=== PATIENT | male | born 1975 | race Caucasian/White ===

== ENCOUNTER 2016-11-16 16:57 | Emergency (ER) | payer MEDICAID ==
[2016-11-16 20:32] VITALS: BP 127/73
== END 2016-11-16 20:32 | disposition home or self-care (01) ==
LOC: ED 16:57
DX: J45.901 Unspecified asthma with (acute) exacerbation (principal)
CPT/HCPCS: J7512; J7613; J7644

== ENCOUNTER 2017-01-24 06:38 | Inpatient (IN) | payer SELFPAY ==
[2017-01-24] VITALS (9 sets, daily range): BP systolic 131–202; BP diastolic 68–134
[~2017-01-24] VITALS: Ht 157.5 cm; Wt 75.8 kg
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
--- NOTE | 2017-01-24 06:45 | NUR ---
PT OBTAINED ROSC AT 0645, PER DR MCMAHON TO BEGIN AMIDORONE DRIP, PHARMACY NOTIFIED.
--- NOTE | 2017-01-24 07:09 | NUR ---
SPOKE WITH RAMONA, NOTIFIED HER THAT SPOUSE IS IN THE ED AND ASKED IF SHE COULD COME DOWN [place]. PROVIDED HER WITH ADDRESS.
[2017-01-24 07:27] LABS: UA SPECIFIC GRAVITY 1.025 (1.005-1.035); microscopic required? YES; urine erythrocyte 2+ (NEGATIVE)
[2017-01-24 07:28] LABS: BASOPHIL % 0.3 % (0-2); PLATELET COUNT 137 x10^3mcL (130-400); RED CELL DISTRIBUTION WIDTH 13.9 % (11.5-14.5)
[2017-01-24 07:35] LABS: CALCIUM 7.6 mg/dL (8.5-10.1); CARBON DIOXIDE 17.2 mmol/L (21-32); CHLORIDE SERUM 102 mmol/L (98-107); CREATININE SERUM 1.7 mg/dL (0.7-1.3); GFR1 48 mL/min; GLUCOSE SERUM 431 mg/dL (74-106); POTASSIUM SERUM 4.2 mmol/L (3.5-5.1); SODIUM SERUM 131 mmol/L (136-145)
[2017-01-24 07:35] LABS: AMPHETAMINE QUAL UR NONE DETECTED (NEG <=1000)
[2017-01-24 07:46] LABS: ALKALINE PHOSPHATASE 123 U/L (46-116); ALT/SGPT 165 U/L (16-63); AMYLASE 79 U/L (25-115); AST/SGOT 280 U/L (15-37); BILIRUBIN TOTAL 0.16 mg/dL (0.20-1.00); CHOLESTEROL 151 mg/dL (<200); HDL CHOLESTEROL 43 mg/dL (40-60); LIPASE 271 IU/L (73-393)
[2017-01-24 07:50] LABS: ALBUMIN 2.6 g/dL (3.4-5.0); T4(THYROXINE) 4.2 ug/dL (4.7-13.3); TOTAL PROTEIN, SERUM 5.4 g/dL (6.4-8.2)
--- NOTE | 2017-01-24 07:54 | NUR ---
0710 PT NOTED WITH SINUS IGNACIO WITH HR IN 30S. CPR WAS STARTED AND DR MCMAHON CALLED TO ROOM. PT OBTAINED ROSC AT 0715 S/P 1 ADDITIONAL ROUND OF EPI AND 1 SODIUM BICARB.
--- NOTE | 2017-01-24 08:15 | NUR ---
RECTAL TUBE PLACED BY HERMINIO JAFFE. PT WAS HAVING MULTIPLE EPISODES OF WATERY DIARRHEA.
--- NOTE | 2017-01-24 08:38 | NUR ---
PT TAKEN TO CT VIA [facility] AT THIS TIME. RT HERMINIO ANDRADE, MYSELF, AND CT STAFF ACCOMPANIED.
--- NOTE | 2017-01-24 08:51 | NUR ---
RETURNED FROM CT WITHOUT INCIDENCE. PT RECONNECTED TO FULL CARDIAC MONITORS. WILL CONTINUE WITH PLAN OF CARE.
--- NOTE | 2017-01-24 09:08 | NUR ---
DR MCMAHON NOTIFIED OF PT BP, DR GAVE NO FURTHER ORDERS AT THIS TIME.
--- NOTE | 2017-01-24 09:12 | NUR ---
RT AT BEDSIDE, REDUCED FIO2 TO 40%.
[2017-01-24] MEDS ORDERED: ALBUTEROL1.25 MG/3 PO (09:31)
--- NOTE | 2017-01-24 10:55 | NUR ---
DR MCMAHON MADE AWARE OF PT INCREASED MOVEMENT. PT ATTEMPTING TO REACH FOR ETT. SOFT RESTRAINTS AND 2 MG IVP ATIVAN ORDERED PER DR MCMAHON.
--- NOTE | 2017-01-24 11:22 | NUR ---
XRAY AT BEDSIDE FOR NG TUBE CONFIRMATION.
[2017-01-24 11:27] LABS: T3 TOTAL 1.31 ng/mL
--- NOTE | 2017-01-24 11:29 | NUR ---
PER DULCE VÁSQUEZ TO TRANSFER TO ICU.
[2017-01-24 11:30] LABS: FREE T4 0.7 ng/dL (0.76-1.46); FREE THYROXINE INDEX 1.7 ug/dL (1.4-4.5); T4(THYROXINE) 4.7 ug/dL (4.7-13.3)
--- NOTE | 2017-01-24 11:45 | NUR ---
LIOR DURHAM FROM ED CALLED FOR REPORT AT THIS TIME. UPDATES PROVIDED, ALL QUESTIONS ANSWERED ALL CONCERNS ADDRESSED. PATIENT TO BE TRANSFERED TO ICU SHORTLY.
--- NOTE | 2017-01-24 12:15 | NUR ---
PATIENT ARRIVED ON UNIT AT THIS TIME ACCOMPANIED BY HERMINIO HENRY AND EMT FROM ER. PATIENT IS ORALLY INTUBATED ON PRESSURE CONTROL WITH 7.5 ETT THAT IS 22 LL. LUNG SOUNDS ARE CLEAR BILATERALLY, CHEST RISES SYMMETRICALLY. PATIENT IS AGONAL BREATHING. GCS 3 OBTAINED. PUPILS ARE 2 MM AND FIXED BILATERALLY. PATIENT EXHIBITS NO RESPONSE TO PAINFUL, OR VERBAL STIMULI AFTER MULTIPLE ATTEMPTS. PERIPHERAL PULSES ARE MODERATE TO BUE AND WEAK TO BLE. CAP REFILL IS <3 SECONSD TO BUE AND >3 SECONDS TO BLE. PATIENT HAS IO TO RIGHT LEG, 18 G IV TO RIGHT AND LEFT AC. AMIODARONE INFUSING AT 1 MG/MIN AT THIS TIME. BOWEL SOUNDS ARE HYPOACTIVE IN ALL 4 QUADRANTS WITH FLEXI-SEAL IN PLACE THAT IS DRAINING ORANGE WATERY STOOL TO GRAVITY. MARTINEZ IN PLACE DRAINING YELLOW URINE TO GRAVITY. NO SCROTAL EDEMA OR PENILE DISCHARGE SEEN. WILL CONTINUE TO MONITOR PATIENT.
--- NOTE | 2017-01-24 12:20 | NUR ---
DR. OLIVAS BEDSIDE FOR ASSESSMENT. [id number] TO BE DISCUSSED WITH FAMILY BUT FAMILY IS WAITING FOR THE TO ARRIVE.
--- NOTE | 2017-01-24 12:25 | NUR ---
RT [facility] FOR BREATHING TREATMENT.
--- NOTE | 2017-01-24 12:44 | NUR ---
PT NOTE 1205 RECEIVED ORDER FOR PT EVAL, Pt WAS TRANSFERRED TO ICU FROM ER; PER RN, Pt WAS JUST INTUBATED TODAY; DEFER PT FOR NOW DUE TO INTUBATION. PVE(1)
--- NOTE | 2017-01-24 12:50 | NUR ---
ULTRASOUND BEDSIDE FOR US CAROTID.
--- NOTE | 2017-01-24 13:05 | NUR ---
AMIODARONE CHANGED TO 0.5 MG/MIN AT THIS TIME DUE TO 6N HOURS PASSED. WILL CONTINUE TO MONITOR.
--- NOTE | 2017-01-24 13:55 | NUR ---
DR OLIVAS, DR VICTORIA, DR STANFORD (FOR TRANSLATION) AND MYSELF IN QUIET ROOM. DR OLIVAS SPOKE WITH FAMILY REGARDING PATIENT'S POOR PROGNOSIS. ALL QUESTIONS AND CONCERNS ADDRESSED. PATIENT'S FAMILY WOULD LIKE WITH CONTINUE TO POC WITH PATIENT CONTINUING FULL CODE STATUS.
--- NOTE | 2017-01-24 14:00 | NUR ---
INSPIRATORY PRESSURE ON VENTILATOR SETTINGS INCREASED TO [address] VICTORIA VERBAL ORDER.
--- NOTE | 2017-01-24 16:54 | NUR ---
PATIENT EXTUBATED AT THIS TIME.
--- NOTE | 2017-01-24 16:55 | NUR ---
MORPHINE INTITIATED AT THIS TIME AT 5 MG/HR. ATIVAN CONTINUE AT 2 MG/HR.
--- NOTE | 2017-01-24 17:00 | NUR ---
ATIVAN INCREASED TO 4 MG/HR AT THIS TIME DUE TO PATIENT SHAKING CONSTANTLY.
--- NOTE | 2017-01-24 17:05 | NUR ---
MORPHINE INCREASED TO 7 MG/HR AT THIS TIME. DUE TO HR 117 AND PATIENT GROANING.
--- NOTE | 2017-01-24 17:15 | NUR ---
MORPHINE INCREASED TO 9 MG/HR DUE TO HR 115.
--- NOTE | 2017-01-24 17:25 | NUR ---
MORPHINE INCREASED TO 11 MG/HR DUE TO HR 118.
--- NOTE | 2017-01-24 17:35 | NUR ---
MORPHINE INCREASED TO 13 MG/HR. DUE TO HR 114 AND RR 24.
--- NOTE | 2017-01-24 17:45 | NUR ---
MORPHINE INCREASED TO 15 MG/HR DUE TO HR >100 AND RR >20
--- NOTE | 2017-01-24 17:55 | NUR ---
MORPHINE INCREASED TO 17 MG/HR DUE TO PATIENT MOANING.
--- NOTE | 2017-01-24 18:05 | NUR ---
MORPHINE INCREASED TO 19 MG/HR AT THIS TIME HR >100
--- NOTE | 2017-01-24 18:07 | NUR ---
ATIVAN INCREASED TO 6 MG/HR DUE TO PATIENT BEING INCREASINGLY RESTLESS.
--- NOTE | 2017-01-24 18:42 | NUR ---
PATIENT WITH AGONAL BREATHING AND HR 107. INCREASED MORPHINE BY 2 MG HOUR AND ATIVAN UP BY 2 MG HOUR. WILL CONTINUE TO MONITOR.
--- NOTE | 2017-01-24 19:10 | NUR ---
RECEIVED REPORT FROM DIANE DURHAM, UPDATES PROVIDED, WILL ASSUME TOTAL CARE.
--- NOTE | 2017-01-24 19:15 | NUR ---
RECEIVED PATIENT RESTING IN WITH NO S/S OF DISTRESS. PT ON MORPHINE DRIP @23 MG/HR AND ATIVAN 8 MG/HR. RIGHT AC AND LEFT AC, CDI, PATENT, NO S/S OF REDNESS OR INFILTRATION. TRACHEA IS MIDLINE. NO SCLERAL EDEMA NOTED. NO DRAINGE FROM EENT. LUNG SOUNDS CLEAR TO BUL, DIMINISHED TO BLL. CHEST RISE SYMMETRICAL. S1, S2 AUSCULTATED. CHEST WALL STABLE. NO S/S OF CHEST PAIN. PERIPHERAL PULSES ARE MODERATE TO BUE AND WEAK TO BLE. CAP REFILL <3 SEC. NO EDEMA NOTED. SKIN IS DRY, WTT, AND INTACT. PATIENT HAS GENERALIZED WEAKNESS, PASSIVE ROM NOTED TO ALL EXTREMITIES. PATIENT ABD IS SOFT, ROUND, AND NONTENDER TO PALPATION. NORMOACTIVE BOWEL SOUNDS X 4Q. FLEXI-SEAL IN PLACE DRAINING TO GRAVITY. PATIENT HAS MARTINEZ CATHETER IN PLACE THAT IS DRAINING YELLOW URINE TO GRAVITY. NO SCROTAL EDEMA OR PENILE DISCHARGE NOTED. BED IN LOWEST POSITION. SIDE RAILS UP X 2, HOB ELEVATED 30 DEGREES, CALL LIGHT WITHIN REACH.
--- NOTE | 2017-01-24 19:30 | NUR ---
FAMILY AT BEDSIDE
--- NOTE | 2017-01-24 20:40 | NUR ---
HR 110S, MORPHINE TITRATED TO 25 MG/HR. WILL CONTINUE TO MONITOR.
--- NOTE | 2017-01-24 23:45 | NUR ---
FAMILY AT BEDSIDE
--- NOTE | 2017-01-24 23:45 | NUR ---
TEMP 104.[address], BLANKETS REMOVED, ICE PACKS APPLIED, WILL CONTINUE TO MONITOR.
--- NOTE | 2017-01-25 01:30 | NUR ---
DR DAVIS AT BEDSIDE FOR ASSESSMENT, UPDATES PROVIDED, ALL QUESTIONS AND CONCERNS ANSWERED. DOCTOR SPOKE TO PATIENT'S SISTER AT BEDSIDE REGARDING PATIENT'S STATUS. WILL CONTINUE TO MONITOR.
--- NOTE | 2017-01-25 02:00 | NUR ---
HR 120S, ATIVAN TITRATED TO 10 MG/HR. WILL CONTINUE TO MONITOR.
--- NOTE | 2017-01-25 03:00 | NUR ---
OXYGEN SATURATION TRENDING BETWEEN 60-65% OXYGEN INCREASED TO 2L. WILL CONTINUE TO MONITOR.
--- NOTE | 2017-01-25 03:00 | NUR ---
OXYGEN SATURATION TRENDING BETWEEN 80-85% OXYGEN INCREASED TO 2L. WILL CONTINUE TO MONITOR.
--- NOTE | 2017-01-25 03:15 | NUR ---
OXYGEN SATURATION TRENDING BETWEEN 65-70% OXYGEN INCREASED TO 3L. WILL CONTINUE TO MONITOR.
--- NOTE | 2017-01-25 03:23 | NUR ---
HR 120S, ATIVAN TITRATED TO 10 MG/HR. WILL CONTINUE TO MONITOR.
[2017-01-25 03:55] VITALS: BP 131/74
--- NOTE | 2017-01-25 04:00 | NUR ---
OXYGEN SATURATION TRENDING BETWEEN 80-85% OXYGEN INCREASED TO 4L. FAMILY AT BEDSIDE. WILL CONTINUE TO MONITOR.
--- NOTE | 2017-01-25 04:13 | NUR ---
OXYGEN INCREASED TO 4L, OXYGEN SATURATION TRENDING BETWEEN 80-85%
--- NOTE | 2017-01-25 05:44 | NUR ---
PATIENT CONTINUES ON OXYGEN @ 4LPM RETAINING OXYGEN SATURATION OF 91%-92% WILL CONTINUE TO MONITOR.
--- NOTE | 2017-01-25 05:48 | NUR ---
DR PALMER AT BEDSIDE FOR ASSESSMENT. UPDATES PROVIDED, ALL QUESTIONS AND CONCERNS ANSWERED. NO NEW ORDERS RECEIVED. WILL CONTINUE TO MONITOR.
--- NOTE | 2017-01-25 07:15 | NUR ---
REPORT GIVEN TO MIN RN, UPDATES PROVIDED, ALL QUESTIONS AND CONCERNS ADDRESSED.
--- NOTE | 2017-01-25 07:21 | NUR ---
RECIEVED REPORT FROM GABRIELLA DURHAM AT BEDSIDE. WILL RESUME ALL CARE.
--- NOTE | 2017-01-25 07:29 | NUR ---
PT WAS FOUND ASYSTOLE, DR. OLIVAS AT BEDSIDE AUSCULATING CAROTID AND APICAL PULSES, NON PRESENT. BL PUPILS FIXED 4MM, NON REACTIVE TO LIGHT. DR. OLIVAS PRONOUNCED PT TIME AT 0729. MORPHINE DRIP AND ATIVAN DRIP HAS BEEN TURNED OFF. [facility] WAS CONTACTED AT 0744. CONCONER JOSE CARLOS VELASQUEZ RETURNED CALL BACK AT 0752, PROVIDED CASE #[id number], BODY IS RELEASED BY [employer]. PT WAS NOT IN RSTRAINTS. [facility] IS CONTACTED AT 0750 SPOKE WITH SHARLENE. PER SHARLENE PT'S A CANIDIATE FOR EYE AND TISSUE. [facility] REFERRENCE #[id number]. PT'S HEALTH HX AND NEXT OF KIN INFORMATION WAS PROVIDED TO [facility].
--- NOTE | 2017-01-25 10:02 | NUR ---
PATIENT'S SIGNIFICANT OTHER HAS QUESTIONS REGARDING POSSIBILITY OF TRANSFERRING PATIENT TO ANOTHER [place] FOR SERVICES. GAGAN MONTEZ ON UNIT WITH DR STANFORD TRANSLATING TO ADDRESS ALL QUESTIONS AND CONCERNS.
--- NOTE | 2017-01-25 12:58 | NUR ---
0729- PATIENT IN ASYSTOLE, RESIDENTS PAGED TO PRONOUNCE TOD 0737- DR OLIVAS AT BEDSIDE AND PRONOUNCED TOD 0734- JUL[facility] ACTING HELICOPTER SPECIALIST NOTIFIED 0735- DENZEL IN ADMITTING NOTIFIED 0745- [facility] NOTIFIED AND CASE #[id number] ISSUED. PATIENT CANDIDATE FOR POSSIBLE EYE DONOR. [facility] TO NOTIFY PATIENT'S FAMILY. 0752- RETURN TELEPHONE CALL FROM JOSE CARLOS FERNÁNDEZ FROM [facility] RECEIVED. PATIENT CASE DISCUSSED. PATIENT'S BODY RELEASED. CASE#[id number]. 0755- PATIENT'S FAMILY REMAINS AT BEDSIDE TO GRIEVE. PATIENT'S FAMILY AWAITING OTHER FAMILY MEMBERS AT THIS TIME. 1258- ALL FAMILY MEMBERS HAVE COMPLETED VISITING AND POST MORTEM CARE PROVIDED BY GRACE RN AND PRIMARY RN. PATIENT TO BE TRANSFERRED TO [facility].
== END 2017-01-25 13:15 | disposition expired | DRG 208 ==
LOC: ED 06:38 → DU 08:45 → IC 12:15
PROVIDERS: Emergency Medicine; ADMIT Family Medicine
PROC: 5A1935Z Respiratory Ventilation, Less than 24 Consecutive Hours (ICD-10-PCS; principal; 2017-01-24)
PROC: 0BH17EZ Insertion of Endotracheal Airway into Trachea, Via Natural or Artificial Opening (ICD-10-PCS; 2017-01-24)
DX: J96.00 Acute respiratory failure, unspecified whether with hypoxia or hypercapnia (principal); G93.41 Metabolic encephalopathy; N17.0 Acute kidney failure with tubular necrosis; E43 Unspecified severe protein-calorie malnutrition; J45.901 Unspecified asthma with (acute) exacerbation; E87.2 Acidosis; E87.1 Hypo-osmolality and hyponatremia; I10 Essential (primary) hypertension; E78.5 Hyperlipidemia, unspecified; F12.90 Cannabis use, unspecified, uncomplicated; I46.9 Cardiac arrest, cause unspecified; R74.0 Nonspecific elevation of levels of transaminase and lactic acid dehydrogenase [LDH]; I16.0 Hypertensive urgency; E83.41 Hypermagnesemia; R31.9 Hematuria, unspecified; E03.9 Hypothyroidism, unspecified; E66.9 Obesity, unspecified; Z66 Do not resuscitate; Z79.899 Other long term (current) drug therapy; Z68.32 Body mass index [BMI] 32.0-32.9, adult; Z80.9 Family history of malignant neoplasm, unspecified; Z82.5 Family history of asthma and other chronic lower respiratory diseases; Z79.82 Long term (current) use of aspirin
CPT/HCPCS: 82962; 83880; 84439; A4628; G0480; J0282; J0360; J1815; J1956; J2060; J2270; J2930; J3010; J3475; J3490; J7030; J7060; J7613; J7620; J7644; Q0092